=== PATIENT | male | born 1995 | race Caucasian/White ===

== ENCOUNTER 2021-08-10 04:30 | Emergency (ER) | payer OTHER ==
[~2021-08-10] VITALS: Ht 185.4 cm; Wt 56.0 kg
[2021-08-10] MEDS ORDERED: KETOROLAC 30MG/ML VIAL IV STA (05:26)
[2021-08-10] MEDS ORDERED: ONDANSETRON HCL 4MG/2ML INJ IV STA (05:26)
[2021-08-10] MEDS ORDERED: SODIUM CHLORIDE 0.9% 1,000 ML IV ONE (05:30)
[2021-08-10 05:48] LABS: BASOPHILS % 0.5 % (0.0-2.0); HEMATOCRIT. 52.7 % (42.0-52.0); HEMOGLOBIN. 18.4 g/dL (14.0-18.0); LYMPHOCYTES % 12.2 % (20.0-50.0); MEAN CORPUSCULAR HEMOGLOBIN 35.3 pg (28.0-32.0); MEAN CORPUSCULAR VOLUME 101.1 fL (80.0-94.0); MEAN PLATELET VOLUME 7.9 fl (7.4-10.4); MONOCYTES % 5.3 % (2.0-8.0); PLATELET 338 x1000/uL (130-400); RED BLOOD CELL COUNT 5.21 mill/uL (4.7-6.1); RED CELL DISTRIBUTION WIDTH 16.7 % (11.6-14.6)
[2021-08-10 05:55] LABS: CHLORIDE 93 mEq/L (98-107)
[2021-08-10 06:10] LABS: INR 0.9
[2021-08-10 06:16] LABS: CLARITY URINE CLEAR (CLEAR); COLOR URINE DARK YELLOW (YELLOW); KETONES URINE TRACE (NEGATIVE); LEUKOCYTE ESTERASE URINE NEGATIVE (NEGATIVE); NITRITE URINE NEGATIVE (NEGATIVE); OCCULT BLOOD URINE NEGATIVE (NEGATIVE); PROTEIN URINE 2+ (NEGATIVE); SPECIFIC GRAVITY URINE 1.027 (1.005-1.030); UROBILINOGEN URINE 0.2 E.U./dL (0.2-1.0)
[2021-08-10 07:30] VITALS: BP 136/84
[2021-08-10] MEDS ORDERED: ONDA4TAB5 PO (07:47)
== END 2021-08-10 08:13 | disposition home or self-care (01) ==
LOC: ER 04:30
DX: R11.2 Nausea with vomiting, unspecified (principal); R68.83 Chills (without fever); R03.0 Elevated blood-pressure reading, without diagnosis of hypertension; F12.90 Cannabis use, unspecified, uncomplicated
CPT/HCPCS: 36415; 80053; 81003; 83690; 85025; 85610; 96361; 96374; 96375; 99284; J1885; J2405; J7030

== ENCOUNTER 2022-01-18 14:21 | Emergency (ER) | payer MEDICAID, OTHER ==
[~2022-01-18] VITALS: Ht 185.4 cm; Wt 59.0 kg
[~2022-01-18 14:21] MED LIST: ONDA4TAB5 PO
[2022-01-18] MEDS ORDERED: FLUORESCEIN SODIUM 1MG/STRIP LEFTEYE ONE (15:15)
[2022-01-18] MEDS ORDERED: TETRACAINE 0.5% OPHTH DROPS 4ML LEFTEYE ONE (15:15)
[2022-01-18] MEDS ORDERED: BALANCED SALT IRRIG SOLN 15ML IR ONE (15:15)
[2022-01-18] MEDS ORDERED: NAPR-681 PO (16:23)
[2022-01-18] MEDS ORDERED: SULF1TAB48 PO (16:23)
[2022-01-18] MEDS ORDERED: OFLO5DRO3 LEFTEYE (16:23)
[2022-01-18] MEDS ORDERED: AMOX-424 PO (16:23)
[2022-01-18 16:48] VITALS: BP 127/74
== END 2022-01-18 16:49 | disposition home or self-care (01) ==
LOC: ER 14:21
DX: H00.036 Abscess of eyelid left eye, unspecified eyelid (principal); H10.89 Other conjunctivitis; F12.10 Cannabis abuse, uncomplicated
CPT/HCPCS: 99283

== ENCOUNTER 2022-05-28 17:25 | Emergency (ER) | payer MEDICAID, OTHER ==
[~2022-05-28] VITALS: Ht 185.4 cm; Wt 59.0 kg
[~2022-05-28 17:25] MED LIST changes: +AMOX-424 PO; +NAPR-681 PO; +OFLO5DRO3 LEFTEYE; +SULF1TAB48 PO
[2022-05-28 17:44] VITALS: BP 127/93
[2022-05-28] MEDS ORDERED: BICT1TAB3 (17:48)
== END 2022-05-28 20:14 | disposition left against medical advice (07) ==
LOC: ER 17:25
DX: Z53.21 Procedure and treatment not carried out due to patient leaving prior to being seen by health care provider (principal)